=== PATIENT | male | born 1995 ===

== ENCOUNTER 2019-01-19 16:42 | Emergency (ER) | payer OTHER ==
[2019-01-19 16:55] VITALS: TEMP 98.6
[2019-01-19] MEDS ORDERED: Piperacillin/Tazobact 4.5 GM in Sodium Chloride 0.9% 100 ML IV STA (17:08)
--- NOTE | 2019-01-19 17:31 | ED PDOC ---
Lower Extremity Pain/Injury Time Seen by Provider: 01/19/19 16:57 Chief Complaint (Nursing): Lower Extremity Problem/Injury Chief Complaint (Provider): Left lower leg pain History Per: Patient History/Exam Limitations: no limitations Onset/Duration Of Symptoms: Days Current Symptoms Are (Timing): Still Present Additional Complaint(s): 23 year old male with asthma presents to the ED for an evaluation of left lower leg pain onset 01/08/19. Patient reports of pain on the inside, above the left ankle. It was initially a bump with redness and the pain increased radiating to the calf. Currently, there is an aching, throbbing pain that is constant. He took Naproxen with minimal relief. Otherwise, patient denies fever, cough, shortness of breath, body ache or history of skin lesion. PMD: no family provider Past Medical History Reviewed: Historical Data, Nursing Documentation, Vital Signs Vital Signs: Last Vital Signs Temp 98.6 F 01/19/19 16:54 Pulse 76 01/19/19 16:54 Resp 16 01/19/19 16:54 BP 155/85 H 01/19/19 16:54 Pulse Ox 98 01/19/19 16:54 - Medical History PMH: Asthma - Surgical History Surgical History: No Surg Hx - Family History Family History: States: Other Other Family History: Asthma - Social History Current smoker - smoking cessation education provided: Yes Alcohol: Social Drugs: Denies - Home Medications Home Medications: Ambulatory Orders Medication Instructions Recorded Amoxicillin/Clavulanate [Augmentin 1 tab PO BID #14 tab 01/19/19 875 MG-125 MG] Ibuprofen [Motrin Tab] 600 mg PO Q8 PRN #60 tab 01/19/19 Sulfamethoxazole/Trimethoprim 1 tab PO BID #14 tab 01/19/19 [Bactrim DS 800 mg-160 mg] - Allergies Allergies/Adverse Reactions: Allergies Allergy/AdvReac Type Severity Reaction Status Date / Time No Known Allergies Allergy Verified 01/19/19 16:52 Review of Systems ROS Statement: Except As Marked, All Systems Reviewed And Found Negative (As per HPI, otherwise negative) Constitutional: Negative for: Fever, Other (body ache ) Cardiovascular: Negative for: Chest Pain Respiratory: Negative for: Cough Musculoskeletal: Positive for: Leg Pain (left lower ) Skin: Negative for: Lesions Physical Exam - Reviewed Nursing Documentation Reviewed: Yes Vital Signs Reviewed: Yes - Physical Exam Appears: Positive for: Well, No Acute Distress Head Exam: Positive for: ATRAUMATIC, NORMOCEPHALIC Skin: Positive for: Warm, Dry Eye Exam: Positive for: EOMI, PERRL ENT: Negative for: Pharyngeal Erythema, Tonsillar Exudate Neck: Positive for: Painless ROM, Supple Cardiovascular/Chest: Positive for: Regular Rate, Rhythm. Negative for: Murmur Respiratory: Positive for: Normal Breath Sounds. Negative for: Respiratory Distress Pulses-Dorsalis Pedis (L): 2+ Gastrointestinal/Abdominal: Positive for: Soft. Negative for: Tenderness Extremity: Positive for: Normal ROM (strong pedal pulse, 5/5 strength with plantar flexion, dorsiflexion, EHL), Capillary Refill (less than 2 seconds ), Other (area of left lower leg has erythema and induration to medial left lower leg extending from proximal lateral malleolus up to the medial calf with trace edema ). Negative for: Calf Tenderness, Deformity (light touch intact ) Lymphatic: Negative for: Inguinal Node Tenderness Neurological/Psych: Positive for: Awake, Alert, Normal Tone, Oriented (x3) - Laboratory Results Result Diagrams: 01/19/19 18:37 01/19/19 18:37 - ECG O2 Sat by Pulse Oximetry: 98 (RA) Pulse Ox Interpretation: Normal Medical Decision Making Medical Decision Making: Time: 17:06 Impression: left lower leg cellulitis Differential Diagnosis: DVT, folliculitis with cellulitis, osteomyelitis Plan: BMP Lact acid CBC w/ differential Toradol 15mg Acetaminophen 975mg Zosyn 4.5mg Blood culture IV insertion Tibia fibula left [RAD] Duplex lower extremity vein left [US] Reevaluation 17:56 Tibia/Fibula X-ray FINDINGS: BONES: No acute displaced fracture. Eccentric sclerotic lesion the lateral aspect of the distal fibula. JOINT SPACES: No dislocation. OTHER FINDINGS: Soft tissue swelling. No evidence of radiopaque foreign body. IMPRESSION: Soft tissue swelling. No acute displaced fracture, dislocation, or significant joint effusion identified.If symptoms persist, or if there is continued clinical concern, x-ray follow-up in 7-10 days should be considered. Eccentric sclerotic lesion involving the lateral aspect of the distal fibula. 17:58 Duplex lower extremity vein left [US] FINDINGS: 2-D, color and duplex Doppler analysis of the lower extremity venous circulation using routine protocol from the femoral veins through the popliteal veins. Venous compressibility: Normal. Flow and augmentation patterns: Normal. Visualized veins upper third of calf: Normal. Jovel cyst: None. Incidental finding(s): Superficial/venous varicosities identified at the site of the clinical presentation of pain. Morphologically, unremarkable lymph node(s) 0.9 x 1.6 x 2.7 IMPRESSION: No sonographic or Doppler evidence for DVT in left lower extremity. Labs with no clinically significant abnormalities. DW pt findings. Pt to be discharged and advised 48 hour followup clinic or in ER if unable to schedule followup appt. Scribe Attestation: Documented by Junior Verdin, acting as a scribe for Edilma Arango MD. Provider Scribe Attestation: All medical record entries made by the Scribe were at my direction and personally dictated by me. I have reviewed the chart and agree that the record accurately reflects my personal performance of the history, physical exam, medical decision making, and the department course for this patient. I have also personally directed, reviewed, and agree with the discharge instructions and disposition. Disposition - Clinical Impression Clinical Impression: Cellulitis of left leg Counseled Patient/Family Regarding: Studies Performed, Diagnosis, Need For Followup, Rx Given - Disposition Referrals: [facility] [place] [Outside] (CALL TOMORROW TO SETUP FOLLOWUP APPOINTMENT IN 48 HOURS. IF YOU ARE UNABLE TO MAKE APPOINTMENT, PLEASE RETURN TO ER FOR YOUR REEVALUATION) Disposition: Routine/Home Disposition Time: 19:26 Condition: STABLE Prescriptions: Amoxicillin/Clavulanate [Augmentin 875 MG-125 MG] 1 tab PO BID #14 tab Ibuprofen [Motrin Tab] 600 mg PO Q8 PRN #60 tab PRN Reason: PAIN Sulfamethoxazole/Trimethoprim [Bactrim DS 800 mg-160 mg] 1 tab PO BID #14 tab Instructions: Cellulitis (Skin Infection), Adult (DC) Forms: [facility] ED School/Work Excuse
--- NOTE | 2019-01-19 18:00 | RAD ---
PROCEDURE: Radiographs of the left tibia and fibula. Two views. HISTORY: LEFT leg swelling pain COMPARISON: None available. TECHNIQUE: Frontal and lateral views obtained. FINDINGS: BONES: No acute displaced fracture. Eccentric sclerotic lesion the lateral aspect of the distal fibula. JOINT SPACES: No dislocation. OTHER FINDINGS: Soft tissue swelling. No evidence of radiopaque foreign body. IMPRESSION: Soft tissue swelling. No acute displaced fracture, dislocation, or significant joint effusion identified.If symptoms persist, or if there is continued clinical concern, x-ray follow-up in 7-10 days should be considered. Eccentric sclerotic lesion involving the lateral aspect of the distal fibula.
--- NOTE | 2019-01-19 18:01 | US ---
Date of service: 01/19/2019 HISTORY: LEFT leg swelling. PRIORS: None. FINDINGS: 2-D, color and duplex Doppler analysis of the lower extremity venous circulation using routine protocol from the femoral veins through the popliteal veins. Venous compressibility: Normal. Flow and augmentation patterns: Normal. Visualized veins upper third of calf: Normal. Jovel cyst: None. Incidental finding(s): Superficial/venous varicosities identified at the site of the clinical presentation of pain. Morphologically, unremarkable lymph node(s) 0.9 x 1.6 x 2.7 IMPRESSION: No sonographic or Doppler evidence for DVT in left lower extremity.
[2019-01-19 18:42] LABS: BASO # 0.1 K/uL (0.0-0.2); BASO % 0.9 % (0.0-2.0); EOS # 0.5 K/uL (0.0-0.7); EOS % 4.5 % (0.0-4.0); HEMOGLOBIN 15.1 g/dL (12.0-18.0); LYMPH # 2.2 K/uL (1.0-4.3); LYMPH % 21.8 % (20.0-40.0); MEAN CELL VOLUME 79.8 fl (80.0-94.0); MEAN CORPUSCULAR HEMOGLOBIN 26.7 pg (27.0-31.0); MEAN CORPUSCULAR HGB CONC 33.5 g/dL (33.0-37.0); MEAN PLATELET VOLUME 8.5 fl (7.2-11.7); MONO # 1.1 K/uL (0.0-0.8); MONO % 10.4 % (0.0-10.0); NEUT # 6.3 K/uL (1.8-7.0); NEUT % 62.4 % (50.0-75.0); NRBC % 0.1 % (0.0-0.0); RBC 5.67 Mil/uL (4.40-5.90); RED CELL DISTRIBUTION WIDTH 14.1 % (11.5-14.5); WHITE BLOOD COUNT 10.1 K/uL (4.8-10.8)
[2019-01-19 19:03] LABS: BLOOD UREA NITROGEN 15 mg/dl (9-20); CALCIUM 9.1 mg/dL (8.4-10.2); GFR NON-AFRICAN AMERICAN > 60
[2019-01-19 19:46] VITALS: BP 122/65; PULSE 71; RESP 18
[2019-01-19 19:57] VITALS: O2SAT 98
== END 2019-01-19 20:07 | disposition home or self-care (01) ==
LOC: H.ER 16:42
DX: L03.116 Cellulitis of left lower limb (principal); F17.200 Nicotine dependence, unspecified, uncomplicated; J45.909 Unspecified asthma, uncomplicated
CPT/HCPCS: 73590; 80048; 83605; 85025; 87040; 93971; 96374; 99284; J1885; J2543